=== PATIENT | female | born 1965 | race Caucasian/White ===

== ENCOUNTER 2024-01-12 11:14 | Emergency (ER) | payer OTHER ==
[~2024-01-12] VITALS: Ht 162.6 cm; Wt 53.8 kg
[2024-01-12 11:42] VITALS: BP 147/87; PULSE 81; TEMP 97.9; O2SAT 98
[2024-01-12] MEDS: ketorolac trometh 15mg/ml vial 15 MG/ML ML IM ONE (12:48)
[2024-01-12] MEDS ORDERED: CYCL-394 PO (13:02)
[2024-01-12 13:19] VITALS: RESP 16
== END 2024-01-12 13:20 | disposition home or self-care (01) ==
LOC: ER 11:15
DX: M54.50 Low back pain, unspecified (principal); M25.511 Pain in right shoulder; W10.9XXA Fall (on) (from) unspecified stairs and steps, initial encounter; Y93.89 Activity, other specified; Y92.89 Other specified places as the place of occurrence of the external cause; Y99.8 Other external cause status
CPT/HCPCS: 72100; 73030; 96372; 99284; J1885